=== PATIENT | male | born 1970 | race Caucasian/White ===

== ENCOUNTER 2022-12-20 03:19 | Day surgery (SDC) | payer OTHER, SELFPAY ==
[2022-12-06 14:01] VITALS: BMI 29.3
--- NOTE | 2022-12-17 13:52 | PM.HPGS ---
History of Present Illness History of Present Illness Consent: Risks, benefits, and alternatives have been discussed and questions answered. Patient agrees to proceed with procedure. Chief complaint: neoplasm screening Narrative: Nilo Leal is a 52 year old male referred for colon cancer screening. Review of Systems Review of Systems: All systems reviewed & are unremarkable except as noted in HPI and below PMFSH Past Medical History Medical History Arthralgia of right shoulder region Bilateral carpal tunnel syndrome BMI 31.0-31.9,adult BMI 32.0-32.9,adult BMI 33.0-33.9,adult BMI 34.0-34.9,adult Chewing tobacco nicotine dependence Chronic left shoulder pain resolved after shoulder surgery with Dr. Ontiveros Chronic pain of both shoulders Chronic pain of right knee Colon cancer screening COVID-19 (05/27/20) Elevated liver enzymes Liver enzymes normal with GGT 68, AST 25, ALT 29 on 03/19/2022. Encounter for prostate cancer screening PSA 0.92 on 03/19/2022. Encounter for wellness examination in adult Essential (primary) hypertension Fatigue Male erectile dysfunction, unspecified secondary to HCTZ and resolved with discontinuation Mixed hyperlipidemia Total cholesterol 213, HDL 71, triglycerides 106, LDL 121 on 03/19/2022. Obesity (BMI 30.0-34.9) Family History Family History Other Bilateral carpal tunnel syndrome History of arthroplasty of right shoulder Social History Social History Smoking packs per day: 0 Smoking cigarettes per day: 0.0 Years smoked: 0 Smoking pack-years: 0.00 Smoking status: Never smoker Tobacco type: smokeless tobacco Smokeless tobacco user: chewing tobacco Second hand tobacco smoke exposure: No Alcohol intake: current Drinks per week: 12 Alcohol use details: few every day of beer Substance use: never Substance use type: does not use Lack of Food: Never True Current Housing: I Have Housing Concerned About Future Housing: No Difficulty Paying Gas/Electric Bills: No Difficulty Paying for Meds: No Currently Unemployed: No Education: Trade/Vocational Certificate Difficulty w/ Childcare or Family Care: No Living arrangements: with family Occupation/Education: occupation 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 Gender identity (if verbalized by the patient): Male Sexual Orientation (if Verbalized by the Patient): Straight or Heterosexual Spiritual care concerns: No Agree to blood products: Yes Meds Home Medications and Allergies Home Medications Medication Instructions Recorded Confirmed Type amlodipine 5 mg tablet 5 mg PO DAILY #30 tabs 09/29/22 12/20/22 Rx irbesartan 300 mg tablet 300 mg PO DAILY #30 tabs 09/29/22 12/20/22 Rx Allergies Allergy/AdvReac Type Severity Reaction Status Date / Time No Known Allergies Allergy Verified 12/20/22 06:15 Exam Const: General: alert Orientation/consciousness: patient oriented x3 Resp: Auscultation: clear to auscultation bilaterally Cardio: Rhythm: regular rhythm GI: GI Palp: Yes Soft to palpation and No Tenderness to palpation present (GI) Neuro: General: patient oriented x3 Assessment and Plan Assessment and plan (1) Colon cancer screening: Code(s): Z12.11 - Encounter for screening for malignant neoplasm of colon Status: Acute Assessment and Plan: Colonoscopy with possible biopsy or polypectomy or cautery or injection of substances.
[2022-12-20 06:17] VITALS: BP 151/82; PULSE 86; RESP 16; TEMP 36.1; O2SAT 100; BMI 30.2
[2022-12-20] MEDS: LACTATED RINGERS 1,000 ML 150 ML IV CONT (06:24)
--- NOTE | 2022-12-20 07:19 | WPDANESEPPF ---
Anes - Initial Pre Proc Eval Procedure: Operation Date: 12/20/22 07:30 Proposed Procedures p Screening Colonoscopy - Epifanio Roberson MD Date/Time: 12/20/22 07:19 Surgeon: Epifanio Roberson MD Pre Op Diagnosis: neoplasm screening Patient Data Age: 52 Gender: M Height: 1.8 m Weight: 98.2 kg Last Vital Signs Temp 96.9 F L 12/20/22 06:17 Pulse 86 12/20/22 06:17 Resp 16 12/20/22 06:17 BP 151/82 H 12/20/22 06:17 Pulse Ox 100 12/20/22 06:17 O2 Del Method Room Air 12/20/22 06:17 Allergies Allergy/AdvReac Type Severity Reaction Status Date / Time No Known Allergies Allergy Verified 12/20/22 06:15 Home Medications Medication Instructions Recorded Confirmed Type amlodipine 5 mg tablet 5 mg PO DAILY #30 tabs 09/29/22 12/20/22 Rx irbesartan 300 mg tablet 300 mg PO DAILY #30 tabs 09/29/22 12/20/22 Rx Patient hx anesthesia problems: none Family hx anesthesia problems: none Results Review: All pre-operative results and documents have been reviewed as part of the pre-operative evaluation. [facility] Past Medical History Medical History Arthralgia of right shoulder region Bilateral carpal tunnel syndrome BMI 31.0-31.9,adult BMI 32.0-32.9,adult BMI 33.0-33.9,adult BMI 34.0-34.9,adult Chewing tobacco nicotine dependence Chronic left shoulder pain resolved after shoulder surgery with Dr. Ontiveros Chronic pain of both shoulders Chronic pain of right knee Colon cancer screening COVID-19 (05/27/20) Elevated liver enzymes Liver enzymes normal with GGT 68, AST 25, ALT 29 on 03/19/2022. Encounter for prostate cancer screening PSA 0.92 on 03/19/2022. Encounter for wellness examination in adult Essential (primary) hypertension Fatigue Male erectile dysfunction, unspecified secondary to HCTZ and resolved with discontinuation Mixed hyperlipidemia Total cholesterol 213, HDL 71, triglycerides 106, LDL 121 on 03/19/2022. Obesity (BMI 30.0-34.9) Family History Family History Other Bilateral carpal tunnel syndrome History of arthroplasty of right shoulder Social History Social History Smoking packs per day: 0 Smoking cigarettes per day: 0.0 Years smoked: 0 Smoking pack-years: 0.00 Smoking status: Never smoker Tobacco type: smokeless tobacco Smokeless tobacco user: chewing tobacco Second hand tobacco smoke exposure: No Alcohol intake: current Drinks per week: 12 Alcohol use details: few every day of beer Substance use: never Substance use type: does not use Lack of Food: Never True Current Housing: I Have Housing Concerned About Future Housing: No Difficulty Paying Gas/Electric Bills: No Difficulty Paying for Meds: No Currently Unemployed: No Education: Trade/Vocational Certificate Difficulty w/ Childcare or Family Care: No Living arrangements: with family Occupation/Education: occupation 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 Gender identity (if verbalized by the patient): Male Sexual Orientation (if Verbalized by the Patient): Straight or Heterosexual Spiritual care concerns: No Agree to blood products: Yes Anes - Eval Final PreProcedure Day of Procedure 12/20/22 07:19 Patient weight: obese Heart: regular rate and rhythm Lungs: clear to auscultation Airway: Mallampati scale class II Neurological: alert and oriented Last oral intake: >/= 8 hours ASA classification: II Emergent: no Anesthetic plan: proceed Anesthesia type and monitoring: general GIVS and standard monitoring Results Review: All pre-operative results and documents have been reviewed as part of the pre-operative evaluation. Informed Consent: The patient's anesthetic plan and its attendant risks and benefits were discussed with the patient/family/POA. Questions were solicited
[2022-12-20 07:49] VITALS: BP 130/79; PULSE 70; RESP 22; O2SAT 97
[2022-12-20 07:59] VITALS: BP 111/75; PULSE 64; RESP 23; O2SAT 100
[2022-12-20 08:09] VITALS: BP 117/79; PULSE 62; RESP 18; O2SAT 100
== END 2022-12-20 08:11 | disposition home or self-care (01) ==
PROVIDERS: PCP Family Medicine; Visit Provider Internal Medicine Gastroenterology
PROC: 0DJD8ZZ Inspection of Lower Intestinal Tract, Via Natural or Artificial Opening Endoscopic (ICD-10-PCS; CPT 45378; principal; 2022-12-20 07:30)
DX: Z12.11 Encounter for screening for malignant neoplasm of colon (principal); D12.5 Benign neoplasm of sigmoid colon; I10 Essential (primary) hypertension; D12.3 Benign neoplasm of transverse colon; K57.30 Diverticulosis of large intestine without perforation or abscess without bleeding; E78.2 Mixed hyperlipidemia; E66.9 Obesity, unspecified; Z68.30 Body mass index [BMI] 30.0-30.9, adult
CPT/HCPCS: 45385; 88305; J2704; J7120

== ENCOUNTER 2023-03-21 07:46 | Outpatient (CLI) | payer OTHER, SELFPAY ==
--- NOTE | 2023-03-21 08:22 | ECG_ITS ---
Measurements Intervals [place] Rate: 77 P: 20 NV: 151 QRS: -6 QRSD: 109 T: 24 QT: 362 QTc: 412 Interpretive Statements SINUS RHYTHM BASELINE ARTIFACT MINIMAL VOLTAGE CRITERIA FOR LVH, CONSIDER NORMAL VARIANT BORDERLINE ECG NO PREVIOUS ECG AVAILABLE FOR COMPARISON Electronically Signed On 03-21-2023 16:58:26 CDT by Yohan Priest M.D.
[2023-03-21 08:49] LABS: Hematocrit 44.1 % (42.0-52.0); Hemoglobin 14.9 g/dL (14.0-18.0)
== END 2023-03-21 07:47 | disposition home or self-care (01) ==
LOC: ANHSURGERY 07:49
PROVIDERS: Anesthesiology; PCP Family Medicine; Visit Provider Surgery
DX: Z01.818 Encounter for other preprocedural examination (principal); I10 Essential (primary) hypertension; K63.5 Polyp of colon; R93.1 Abnormal findings on diagnostic imaging of heart and coronary circulation
CPT/HCPCS: 36415; 85014; 85018; 86850; 86900; 86901; 93005

== ENCOUNTER 2023-03-29 12:27 | Inpatient (IN) | payer OTHER, SELFPAY ==
--- NOTE | 2023-03-21 08:03 | PC.NURSE ---
Report to the Outpatient Waiting Room, entrance under the green pavilion located off [facility], at time __0600 on date __03/29/23 . Planned Procedure Time: _729 . Time changes happen often and if your time is changed the preop area will call you the afternoon before. - You and your visitor will be asked to self-screen and do not enter if you have any COVID symptoms. - A mask is optional within the hospital at this time. Patients may have clear liquids (water, carbonated beverages, clear teas, apple juice) until 3 hours prior to surgery with a maximum of 20 ounces. - No food from midnight until time of surgery - Infants may have breast milk until 4 hours before surgery, formula 6 hours prior to surgery. - Children will be allowed to drink immediately following surgery. If applicable, please bring a bottle or sippy cup to assist with drinking. Juice, water, soda, and popsicles are readily available. For infants on formula, please bring formula the day of surgery. Pacifiers are allowed. Take the following medications with a SIP of water the morning of surgery: ___AMLODIPINE DO NOT STOP ANY OF YOUR OTHER PRESCRIPTION MEDICATIONS PRIOR TO SURGERY ?EXCEPT THE FOLLOWING Medications to discontinue per physician ___NONE HIBICLENS SHOWER DAY BEFORE SURGERY AND MORNING OF SURGERY ENSURE BUNDLE PACK PER DR ACUNA BOWEL PREP PER DR ACUNA Please no make-up, nail new zealander, hairspray, perfume, deodorant, or body powder the day of surgery. No jewelry (including any body piercings) or valuables the day of surgery, leave them at home. Please take a shower or bath the night before, or the morning of, surgery with an antibacterial soap. Wear comfortable, loose fitting clothing. Children are encouraged to wear pajamas. - Jewelry must be removed prior to entering the operating room. Rings and piercings that are not removed may be cut off. - The hospital will not accept responsibility for valuables. - Please leave all valuables, including medications, at home the day of surgery. If you are going home after surgery, a licensed cement mixer driver must drive you home. - NO public transportation without another adult if you receive anesthesia. - We recommend that an adult stay with you for 24 hours following discharge. - We also recommend that you do not drive, make important decision, drink alcoholic beverages, or take any drugs that were not prescribed by your health care provider for at least 24 hours after your discharge time. For Pediatric surgeries, we recommend two adults accompany the child home. Follow any additional instructions given to you from your surgeon. If you or anyone in your household have experienced Covid symptoms in the past week, please notify your surgeon or the nurse liaison at the phone number below for possible testing. VERBAL AND WRITTEN instructions given to __PATIETN and asked if any additional questions and then verbalized understanding. Patient advised to call surgeon office or pre surgery nurse liaison [phone] if any additional questions.
[2023-03-21 08:22] VITALS: BP 149/91; PULSE 86; RESP 18; TEMP 36.8; O2SAT 99; BMI 31.9
[2023-03-29] VITALS (17 sets, daily range): BP systolic 92–156; BP diastolic 62–92; PULSE 62–89; RESP 12–189; TEMP 36–36.9; O2SAT 96–100
--- NOTE | ~2023-03-29 | CT_ITS ---
EXAMINATION: CT abdomen pelvis w con DATE: 03/29/2023 21:25 INDICATION: Acute anemia. TECHNIQUE: Computed tomography (CT) of the abdomen and pelvis was performed with 100 mL Omnipaque 350 intravenous contrast. Automated exposure control and iterative reconstruction technique were employe d. The dose-length product was 1079.86 mGy-cm. COMPARISON: None. FINDINGS: The visualized portions of the lung bases demonstrate mild atelectasis. A calcified left kevin ng nodule and calcified left hilar lymph nodes are consistent with old granulomatous disease. No pleu ral effusion. The heart size is normal. There are coronary artery calcifications. No pericardial effu papa. There is left-sided gynecomastia. The liver, gallbladder, spleen, pancreas, adrenal glands, and kidneys are normal. The prostate is mildly enlarged. There are bilateral inguinal hernias containing fat. There is gas in the peritoneum and body wall, consistent with recent surgery. There is an anast omosis in the sigmoid colon. There are no dilated loops of bowel. The appendix is normal. There is a large volume of hemoperitoneum. There are no pathologically enlarged lymph nodes. Body wall edema is noted. There is severe lower lumbar spondylosis. There is mild thoracic spondylosis. IMPRESSION: 1. Large volume of hemoperitoneum. Reviewed, dictated and finalized at location E.
[2023-03-29] MEDS: LACTATED RINGERS 1,000 ML 30 ML IV CONT ×2 (06:33→11:15)
[2023-03-29] MEDS: ACETAMINOPHEN 500 MG TABLET 1000 MG PO ×3 (06:34→23:39)
[2023-03-29] MEDS: KETOROLAC 15 MG/ML VIAL (*BKC) IV PUSH (06:36)
--- NOTE | 2023-03-29 07:13 | WPDANESEPPF ---
Anes - Initial Pre Proc Eval Procedure: Operation Date: 03/29/23 07:30 Proposed Procedures p Laparoscopic Sigmoid Colectomy, Davinci Assisted - Facundo Gutierrez DO Date/Time: 03/29/23 07:13 Surgeon: Facundo Gutierrez DO Pre Op Diagnosis: sigmoid polyp Patient Data Age: 52 Gender: M Height: 1.78 m Weight: 98.3 kg Last Vital Signs Temp 97.0 F L 03/29/23 06:03 Pulse 73 03/29/23 06:03 Resp 189 H 03/29/23 06:03 BP 156/86 H 03/29/23 06:03 Pulse Ox 100 03/29/23 06:03 O2 Del Method Room Air 03/29/23 06:03 Allergies Allergy/AdvReac Type Severity Reaction Status Date / Time No Known Allergies Allergy Verified 03/29/23 06:53 Home Medications Medication Instructions Recorded Confirmed Type amlodipine 5 mg tablet 5 mg PO DAILY #30 tabs 09/29/22 03/29/23 Rx irbesartan 300 mg tablet 300 mg PO DAILY #30 tabs 09/29/22 03/29/23 Rx Patient hx anesthesia problems: none Family hx anesthesia problems: none Results Review: All pre-operative results and documents have been reviewed as part of the pre-operative evaluation. [facility] Past Medical History Medical History Arthralgia of right shoulder region Bilateral carpal tunnel syndrome BMI 31.0-31.9,adult BMI 32.0-32.9,adult BMI 33.0-33.9,adult BMI 34.0-34.9,adult Chewing tobacco nicotine dependence Chronic left shoulder pain resolved after shoulder surgery with Dr. Ontiveros Chronic pain of both shoulders Chronic pain of right knee Colon cancer screening (12/20/22) 50 mm polypoid mass distal sigmoid colon he biopsied With pathology suggesting tubular adenoma with no high-grade dysplasia with 16 mm sessile polyp, tubular adenoma, in the proximal sigmoid colon removed. Recheck in 1 year COVID-19 (05/27/20) Elevated liver enzymes Liver enzymes normal with GGT 68, AST 25, ALT 29 on 03/19/2022. Encounter for prostate cancer screening PSA 0.92 on 03/19/2022. Encounter for wellness examination in adult Essential (primary) hypertension Fatigue Male erectile dysfunction, unspecified secondary to HCTZ and resolved with discontinuation Mixed hyperlipidemia Total cholesterol 213, HDL 71, triglycerides 106, LDL 121 on 03/19/2022. Obesity (BMI 30.0-34.9) Family History Family History Other Bilateral carpal tunnel syndrome History of arthroplasty of right shoulder Social History Social History Smoking packs per day: 0 Smoking cigarettes per day: 0.0 Years smoked: 0 Smoking pack-years: 0.00 Smoking status: Never smoker Tobacco type: smokeless tobacco Smokeless tobacco user: chewing tobacco Second hand tobacco smoke exposure: No Alcohol intake: current Drinks per week: 15 Alcohol use details: BEER Substance use: never Substance use type: does not use Lack of Food: Never True Current Housing: I Have Housing Concerned About Future Housing: No Difficulty Paying Gas/Electric Bills: No Difficulty Paying for Meds: No Currently Unemployed: No Education: Trade/Vocational Certificate Difficulty w/ Childcare or Family Care: No Living arrangements: with family Occupation/Education: occupation 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
--- NOTE | 2023-03-29 07:15 | PM.IMHP ---
H&P: HPI History of Present Illness Date/Time: 03/29/23 07:15 Chief Complaint: Sigmoid polyp Narrative: 52 yo man presents for sigmoid colectomy. He had a large polyp identified on routine screening colonoscopy. He reports no changes since last seen in office. Review of Systems Review of Systems: All systems reviewed & are unremarkable except as noted in HPI and below Constitutional: Constitutional: Denies chills, Denies fever(s), Denies headache(s) and Denies weight loss Eyes: Eyes: Denies change in vision ENT: Denies dizziness, Denies headache(s), Denies neck mass and Denies throat swelling Cardiovascular: Cardiovascular: Denies chest pain, Denies lightheadedness and Denies dyspnea Respiratory: Respiratory: Denies cough, Denies dyspnea and Denies wheezing Gastrointestinal: Gastrointestinal: Denies abdominal pain, Denies change in bowel habits, Denies nausea and Denies vomiting Genitourinary: Genitourinary: Denies hematuria and Denies dysuria Musculoskeletal: Musculoskeletal: Reports as per HPI Integumentary/Breasts: Skin/Breast: Reports as per HPI Neurologic: Denies dizziness and Denies headache(s) Allergic/Immunologic: Allergic/Immunologic: Denies throat swelling and Denies wheezing [facility] Past Medical History Medical History Arthralgia of right shoulder region Bilateral carpal tunnel syndrome BMI 31.0-31.9,adult BMI 32.0-32.9,adult BMI 33.0-33.9,adult BMI 34.0-34.9,adult Chewing tobacco nicotine dependence Chronic left shoulder pain resolved after shoulder surgery with Dr. Ontiveros Chronic pain of both shoulders Chronic pain of right knee Colon cancer screening (12/20/22) 50 mm polypoid mass distal sigmoid colon he biopsied With pathology suggesting tubular adenoma with no high-grade dysplasia with 16 mm sessile polyp, tubular adenoma, in the proximal sigmoid colon removed. Recheck in 1 year COVID-19 (05/27/20) Elevated liver enzymes Liver enzymes normal with GGT 68, AST 25, ALT 29 on 03/19/2022. Encounter for prostate cancer screening PSA 0.92 on 03/19/2022. Encounter for wellness examination in adult Essential (primary) hypertension Fatigue Male erectile dysfunction, unspecified secondary to HCTZ and resolved with discontinuation Mixed hyperlipidemia Total cholesterol 213, HDL 71, triglycerides 106, LDL 121 on 03/19/2022. Obesity (BMI 30.0-34.9) Family History Family History Other Bilateral carpal tunnel syndrome History of arthroplasty of right shoulder Social History Social History Smoking packs per day: 0 Smoking cigarettes per day: 0.0 Years smoked: 0 Smoking pack-years: 0.00 Smoking status: Never smoker Tobacco type: smokeless tobacco Smokeless tobacco user: chewing tobacco Second hand tobacco smoke exposure: No Alcohol intake: current Drinks per week: 15 Alcohol use details: BEER Substance use: never Substance use type: does not use Lack of Food: Never True Current Housing: I Have Housing Concerned About Future Housing: No Difficulty Paying Gas/Electric Bills: No Difficulty Paying for Meds: No Currently Unemployed: No Education: Trade/Vocational Certificate Difficulty w/ Childcare or Family Care: No Living arrangements: with family Occupation/Education: occupation 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
--- NOTE | 2023-03-29 07:16 | WPDHPUPDATE1 ---
History and Physical Update Update Date/Time: 03/29/23 07:16 History and Physical has been reviewed, including an updated exam of the patient. There are NO changes in the patient's condition. Risks, benefits, and alternatives have been discussed and questions answered. Patient agrees to proceed with procedure.
[2023-03-29] MEDS: ceFAZolin 2 GM/D5W 50 ML 2 GM/50 ML BAG IVPB (07:34)
[2023-03-29] MEDS: metroNIDAZOLE 500 MG/ISO 100ML 500 MG/100 ML BAG 100 MG IVPB (07:50)
[2023-03-29] MEDS: BUPIVACAINE/EPINEPHRINE 0.5% 50 ML VIAL INFILTRATE (08:45)
[2023-03-29] MEDS: INDOCYANINE GREEN 25 MG VIAL WITH DILUENT 7.5 MG IV PUSH (09:56)
--- NOTE | 2023-03-29 10:57 | W.PM.PROC2 ---
Procedure Note - Detailed Date of Procedure 03/29/23 Pre-op Diagnosis sigmoid polyp Post-op Diagnosis Same Procedure Performed Laparoscopic sigmoid colectomy with colorectal anastomosis, da Sven assisted Surgeon Facundo Gutierrez DO Anesthesia General and Local (0.5% bupivacaine with epinephrine) Indications This is a 52-year-old man who presented with findings of a large sigmoid polyp on colonoscopy on 12/20/2022. The area was tattooed and biopsies confirmed adenoma. This was his 1st colonoscopy. He denied any rectal bleeding or any other bowel habit changes. Discussions were made with the patient about treatment options and decision was made to proceed with robotic assisted laparoscopic sigmoid colectomy. Findings Laparoscopic sigmoid colectomy was performed. The tattooed region was identified on the distal sigmoid colon. The rectum distal to this appeared healthy and viable. The patient had adequate length of the colon proximally to bring down into pelvis for anastomosis. A high ligation of the inferior mesenteric artery was performed. Indocyanine green was also used to confirm adequate perfusion to the proximal and distal transection points as well as after the anastomosis. The sigmoid colon was resected and an end to side colorectal anastomosis was performed using a 28 mm EEA stapler. The anastomotic rings appeared intact and leak test showed no evidence of anastomotic leak. The sigmoid colon was sent to the lab for pathology. Description of Procedure Procedure as well as risks, benefits, and alternatives were discussed with the patient. Written consent was obtained and placed in chart prior to procedure. Patient was brought back to surgical suite. He was placed supine on operating table. Time-out was done to confirm patient and procedure. He was then intubated by the anesthesia department. He was then repositioned into a modified lithotomy position. His rectal area was prepped and draped in sterile fashion using Betadine prep and her abdomen was prepped and draped in sterile fashion using chlorhexidine prep. 4 cm transverse incision was made in the suprapubic region using a 15 blade scalpel. Electrocautery was used for hemostasis and for dissection down to the linea alba. The anterior rectus sheath was then cleared for about 2 cm on each side of the linea alba using electrocautery. The anterior rectus sheath was then incised using electrocautery transversely. The fascia was carefully lifted off of the rectus muscle using electrocautery. The rectus muscle was then split in the midline and the peritoneum was entered using electrocautery. A small Mike wound protector was then placed and this was clamped closed using a straight bowel clamp. A 8 mm incision was made in the right upper quadrant and a 5 mm Optiview trocar was advanced through the abdominal layers under direct visualization. Once inside the abdominal cavity, carbon dioxide insufflation was used to create a pneumoperitoneum. Camera was inserted and her abdomen was inspected laparoscopically. No immediate abnormalities were identified. The patient was placed in steep Trendelenburg position. A 12 mm incision was made in the right lower quadrant about 2 cm medial to the ASIS, and a 12 mm trocar was inserted under direct visualization. Three more 8 mm incisions were placed and 8 mm ports were placed under direct visualization on an oblique angle going up towards the left upper quadrant. Exparel was infiltrated laterally the abdominal brewster on each side to perform a transversus abdominis block bilaterally. A careful thorough examination of the abdominal cavity was performed. The omentum was reflected cephalad over the stomach. The cecum and small bowel were reflected out of the pelvis. The robotic arms were then brought up to the patient's bedside in secured to the ports. The robotic camera and instruments were then inserted and then I moved over to the robotic console and took
--- NOTE | 2023-03-29 12:49 | ADMGEN ---
This patient, Nilo Leal, was admitted to [facility] Surg Room 328-01. Patient/family oriented to hospital policies and general routines including ID bracelet, bed and alarms, visiting hours, pain management, procedures, bathroom and other care routines, personal items, smoking policy, room service/diet, and visiting hours. Information on how to activate the Rapid Response Team has been discussed. Patient/Family are encouraged to report perceived risks to care and to ask questions if they do not understand what they are told or what they should do. Report from Carmen in pacu.
[2023-03-29] MEDS: ONDANSETRON INJ 4 MG/2 ML VIAL IV PUSH (12:57)
[2023-03-29] MEDS: LACTATED RINGERS 1,000 ML 100 ML IV CONT (12:58)
[2023-03-29 15:53] LABS: Glucose Point of Care 193 mg/dl (65-105)
[2023-03-29 19:04] LABS: Hematocrit 31.1 % (42.0-52.0)
[2023-03-29 21:11] LABS: Estimated CRCL calculation 55 ml/min; Estimated Glomerular Filt Rate 43
[2023-03-29 22:08] LABS: Hematocrit 27.2 % (42.0-52.0); Hemoglobin 8.8 g/dL (14.0-18.0)
[2023-03-29 22:18] LABS: INR 1.2; Prothrombin Time 15.5 Seconds (11.1-14.7)
[2023-03-29 22:19] LABS: Partial Thromboplastin Time 23.6 SECONDS (22.3-36.8)
[2023-03-29] MEDS: TRANEXAMIC ACID 1,000MG/ISO100 1,000 MG/100 ML BAG 200 MG IVPB (22:36)
[2023-03-30] VITALS (8 sets, daily range): BP systolic 98–122; BP diastolic 59–73; PULSE 68–94; RESP 16–18; TEMP 36.1–37.4; O2SAT 90–97
[2023-03-30] MEDS: LACTATED RINGERS 1,000 ML 100 ML IV CONT ×2 (00:48→12:21)
[2023-03-30 02:23] LABS: Hematocrit 25.8 % (42.0-52.0); Hemoglobin 8.4 g/dL (14.0-18.0)
[2023-03-30] MEDS: oxyCODONE HCL (*CRX) 5 MG TAB IR PO (03:54)
[2023-03-30] MEDS: ACETAMINOPHEN 500 MG TABLET 1000 MG PO ×4 (05:32→23:32)
[2023-03-30 06:01] LABS: Basophils Percent Auto 0.3 % (0.2-1.2); Eosinophils Percent Auto 0.1 % (0-4.4); Hematocrit 24.5 % (42.0-52.0); Hemoglobin 8.1 g/dL (14.0-18.0); Immature Granulocyte Absolute 0.09 K/mm3 (0.00-0.031); Immature Granulocyte Percent A 0.6 % (0-0.5); Lymphocytes Absolute Auto 2.17 K/mm3 (0.9-3.2); Lymphocytes Percent Auto 14.3 % (18.3-44.2); Mean Corpuscular HGB Conc 33.1 g/dl (32-36); Mean Corpuscular Hemoglobin 32.3 pg (26-34); Mean Corpuscular Volume 97.6 fl (80-100); Mean Platelet Volume 9.4 fl (7.4-10.4); Monocytes Absolute Auto 1.8 K/mm3 (0.1-0.6); Monocytes Percent Auto 11.7 % (2.6-8.5); Neutrophils Absolute Auto 11.1 K/mm3 (1.3-6.7); Platelet Count Result 207 k/mm3 (150-375); Red Blood Count 2.51 M/mm3 (4.6-6.20); Red Cell Distribution Width 12.1 % (11.5-14.5); White Blood Count 15.1 K/mm3 (4.5-10.0)
[2023-03-30 06:16] LABS: Anion Gap 7 mmol/L (8-16); Blood Urea Nitrogen 16 mg/dL (9-20); Calcium 8.2 mg/dL (8.4-10.2); Carbon Dioxide 22 mmol/L (22-30); Chloride 100 mmol/L (98-107); Estimated CRCL calculation 47 ml/min; Estimated Glomerular Filt Rate 36; Glucose 117 mg/dL (65-110); Potassium 4.1 mmol/L (3.4-5.0); Sodium 129 mmol/L (137-145)
--- NOTE | 2023-03-30 08:39 | PM.PNGS ---
Progress Note: A&P Assessment and Plan (1) Polyp, sigmoid colon: Qualifiers: Colon polyp type: adenomatous Qualified Code(s): D12.5 - Benign neoplasm of sigmoid colon Code(s): K63.5 - Polyp of colon Status: Acute Assessment and Plan: POD 1 robotic-assisted laparoscopic sigmoid colectomy. He had an episode of bleeding from the right lateral trochar incision and a drop in his hemoglobin last evening. CT scan abdomen/pelvis showed hemoperitoneum, but no active extravasation. His hgb has leveled out this morning and he is feeling better. His abdomen remains soft with a localized area of swelling and ecchymosis at the right lateral trochar incision. Continue full liquids for now. I asked nursing to get the patient up to the side of the bed and if he is stable, then he can start ambulating with assistance. (2) JESSICA (acute kidney injury): Code(s): N17.9 - Acute kidney failure, unspecified Status: Acute Assessment and Plan: Creatinine up to 2.0 this morning with decreased urine output. Likely secondary to some bleeding/volume depletion, and he also had IV contrast with his CT overnight. Will give an IV fluid bolus now. Trend labs. Continue to hold antihypertensives and monitor BP. (3) Anemia: Code(s): D64.9 - Anemia, unspecified Status: Acute Assessment and Plan: Likely related to some bleeding following surgery. He had some bleeding and swelling at the right lateral trochar incision, and manual pressure was applied. Hgb dropped to 10 and then down to 8.[address] ordered and showed hemoperitoneum but no active extravasation. He received a dose of TXA last night. No obvious signs of continued active bleeding this morning. Repeat H/H later today, trend labs. Plan I have discussed the patient's case and plan of care with Dr. Gutierrez. Subjective Subjective Date/Time Seen: 03/30/23 08:39 Post Op day: 1 (Laparoscopic sigmoid colectomy with colorectal anastomosis, da Sven assisted) Patient reports: no new complaints, tolerating liquids well, voiding w/o difficulty, flatus, no bowel movement and afebrile Interval history: Yesterday afternoon following surgery, he developed some bleeding and swelling at his right lateral trochar incision. Pressure was applied for 10 minutes and he had a new dressing applied as well. He felt like he was going to pass out and was diaphoretic. H/H was ordered and hgb 10.0 last night. H/H was checked Q6H since and dropped again down to 8.8. He had a CT abdomen and pelvis w/ contrast that showed large volume hemoperitoneum, but no active extravasation. He was given one dose of TXA. His hgb then remained between 8.1-8.4 overnight and into this morning. He is not tachycardic, but his blood pressure is slightly low. His antihypertensives and Lovenox (prophylactic) are on hold. He reports soreness at his incisions, but no abdominal pain. The right lateral trochar incision has not had anymore bleeding and the same dressing is in place from yesterday afternoon. He reports feeling much better this morning. He denies any dizziness, light-headedness, shortness of breath, or any other complaints at this time. He does want to get out of bed to urinate and walk to the bathroom. He denies nausea or vomiting. He is tolerating full liquids this morning. He feels like he needs to have a bowel movement and is passing flatus. His creatinine is up to 2.0 this morning and sodium down to 129. He has only urinated once this morning since surgery and reports the urine was dark. Nursing did a post-void bladder scan that was negative. Review of Systems Constitutional: Constitutional: Reports as per HPI, Reports no additional constitutional complaints, Denies chills, Denies fever(s), Denies headache(s) and Denies weakness Cardiovascular: Cardiovascular: Reports as per HPI, Reports no additional cardiovascular complaints, Denies chest pain, Denies rapid heart rate and Denies leg
[2023-03-30] MEDS: SODIUM CHLORIDE 0.9% IV 1,000 ML 999 ML IV CONT (09:00)
[2023-03-30 12:07] LABS: Hematocrit 22.1 % (42.0-52.0); Hemoglobin 7.2 g/dL (14.0-18.0)
--- NOTE | 2023-03-30 13:04 | WPDANESPN ---
Anes - Prog Note Post-Op Date/Time: 03/30/23 13:04 Cardiovascular status: normal Respiratory status: normal Airway patency: baseline Mental status: baseline Post-Op hydration status: normal Vital Signs: Last Vital Signs Temp 37.1 C 03/30/23 11:56 Pulse 68 03/30/23 11:56 Resp 16 03/30/23 11:56 BP 104/59 L 03/30/23 11:56 Pulse Ox 97 03/30/23 11:56 O2 Del Method Room Air 03/29/23 20:00 O2 Flow Rate 8 03/29/23 11:30 Pain Score (VAS): 2 I/O: Intake & Output 03/29/23 03/30/23 03/30/23 23:59 07:59 15:59 Intake Total 4463 433 4322 Output Total 300 Balance 1322 -100 2240 Laboratory Tests 03/30/23 11:48 03/30/23 05:38 03/29/23 03/29/23 03/29/23 15:47 18:30 20:54 WBC RBC Hgb 10.0 L D Hct 31.1 L MCV MCH MCHC RDW Plt Count MPV Immature Gran % (Auto) Neut % (Auto) Lymph % (Auto) [place] % (Auto) Eos % (Auto) Baso % (Auto) Lymph # (Auto) [place] # (Auto) Eos # (Auto) Baso # (Auto) Abs Immat Gran (auto) Absolute Neuts (auto) Absolute Nucleated RBC Nucleated RBC % PT INR APTT Sodium Potassium Chloride Carbon Dioxide Anion Gap BUN Creatinine 1.70 H Estim Creat Clear Calc 55 Estimated GFR 43 L Glucose POC Capillary Glucose 193 H Calcium 03/29/23 03/30/23 03/30/23 21:59 02:18 05:38 WBC 15.1 H RBC 2.51 L Hgb 8.8 L 8.4 L 8.1 L Hct 27.2 L 25.8 L 24.5 L MCV 97.6 MCH 32.3 MCHC 33.1 RDW 12.1 Plt Count 207 MPV 9.4 Immature Gran % (Auto) 0.6 H Neut % (Auto) 73.0 Lymph % (Auto) 14.3 L [place] % (Auto) 11.7 H Eos % (Auto) 0.1 Baso % (Auto) 0.3 Lymph # (Auto) 2.17 [place] # (Auto) 1.8 H Eos # (Auto) 0.0 Baso # (Auto) 0.0 Abs Immat Gran (auto) 0.09 H Absolute Neuts (auto) 11.1 H Absolute Nucleated RBC 0.0 Nucleated RBC % 0.0 PT 15.5 H INR 1.2 APTT 23.6 Sodium 129 L Potassium 4.1 Chloride 100 Carbon Dioxide 22 Anion Gap 7 L BUN 16 Creatinine 2.00 H Estim Creat Clear Calc 47 Estimated GFR 36 L Glucose 117 H POC Capillary Glucose Calcium 8.2 L 03/30/23 11:48 WBC RBC Hgb 7.2 L Hct 22.1 L MCV MCH MCHC RDW Plt Count MPV Immature Gran % (Auto) Neut % (Auto) Lymph % (Auto) [place] % (Auto) Eos % (Auto) Baso % (Auto) Lymph # (Auto) [place] # (Auto) Eos # (Auto) Baso # (Auto) Abs Immat Gran (auto) Absolute Neuts (auto) Absolute Nucleated RBC Nucleated RBC % PT INR APTT Sodium Potassium Chloride Carbon Dioxide Anion Gap BUN Creatinine Estim Creat Clear Calc Estimated GFR Glucose POC Capillary Glucose Calcium Post-procedural complaints: none Patient Feedback: Patient satisfied with anesthetic care.
[2023-03-31] VITALS (10 sets, daily range): BP systolic 104–127; BP diastolic 55–69; PULSE 78–96; RESP 16–20; TEMP 36.4–37.6; O2SAT 91–97
[2023-03-31] MEDS: ACETAMINOPHEN 500 MG TABLET 1000 MG PO ×3 (05:24→17:30)
[2023-03-31 06:22] LABS: Mean Corpuscular Hemoglobin 31.8 pg (26-34); Mean Corpuscular Volume 99.5 fl (80-100); Mean Platelet Volume 9.3 fl (7.4-10.4); Platelet Count Result 182 k/mm3 (150-375); Red Blood Count 1.98 M/mm3 (4.6-6.20); Red Cell Distribution Width 12.5 % (11.5-14.5); White Blood Count 10.5 K/mm3 (4.5-10.0)
[2023-03-31 06:27] LABS: Hematocrit 19.7 % (42.0-52.0); Hemoglobin 6.3 g/dL (14.0-18.0)
[2023-03-31 06:36] LABS: Anion Gap 2 mmol/L (8-16); Blood Urea Nitrogen 11 mg/dL (9-20); Calcium 8.2 mg/dL (8.4-10.2); Carbon Dioxide 27 mmol/L (22-30); Chloride 104 mmol/L (98-107); Estimated CRCL calculation 94 ml/min; Estimated Glomerular Filt Rate > 60; Glucose 104 mg/dL (65-110); Potassium 3.6 mmol/L (3.4-5.0); Sodium 133 mmol/L (137-145)
[2023-03-31] MEDS: SODIUM CHLORIDE 0.9% IV 250 ML 30 ML IV CONT (09:44)
--- NOTE | 2023-03-31 13:04 | PM.PNGS ---
Progress Note: A&P Assessment and Plan (1) Tubulovillous adenoma of colon: Code(s): D12.6 - Benign neoplasm of colon, unspecified Status: Acute Assessment and Plan: Tolerating soft diet. Discussed pathology with patient. Will keep in hospital until stable after transfusion. (2) Anemia: Qualifiers: Anemia type: other cause Other causes of anemia: acute posthemorrhagic Qualified Code(s): D62 - Acute posthemorrhagic anemia Code(s): D64.9 - Anemia, unspecified Status: Acute Assessment and Plan: Receiving 2 units PRBC today. BP stable and no signs of continued active bleeding. Drop in hemoglobin likely dilutional from IV bolus and maintenance fluids yesterday. Will repeat CBC tomorrow. Home tomorrow if stable. (3) JESSICA (acute kidney injury): Code(s): N17.9 - Acute kidney failure, unspecified Status: Acute Assessment and Plan: Likely related to acute blood loss. Cr normalized today. Making good urine. Subjective Subjective Date/Time Seen: 03/31/23 13:04 Interval history: Tolerating diet. Bowels moving. Minimal abdominal tenderness. Ambulating without difficulty. No more bleeding from right lateral port site. No lightheadedness. Exam GI: Inspection: non-distended and incision (ecchymosis at right lateral incision, no open wounds or bleeding.) GI Palp: Yes Soft to palpation, Yes Tenderness to palpation present (GI) (mild incisional), No Guarding due to palpation present (GI) and No Rebound tenderness present Percussion: Yes normal to percussion Auscultation: normal bowel sounds Objective Data Vital Signs Vital Signs: Vital Signs - 24 hr 03/30/23 16:01 03/30/23 20:00 03/30/23 20:00 Temperature 36.3 C L 36.2 C L Pulse Rate 81 82 94 Respiratory Rate 16 17 18 Blood Pressure 122/73 102/64 Pulse Oximetry 93 93 90 Oxygen Delivery Room Air 03/31/23 01:00 03/31/23 05:00 03/31/23 09:59 Temperature 36.4 C L 36.8 C 37.3 C Pulse Rate 96 92 88 Respiratory Rate 20 16 16 Blood Pressure 108/59 L 113/60 108/60 Pulse Oximetry 91 91 95 Oxygen Delivery 03/31/23 10:14 03/31/23 11:14 03/31/23 08:35 Temperature 37.6 C 37.3 C Pulse Rate 91 94 Respiratory Rate 16 16 Blood Pressure 114/61 119/63 Pulse Oximetry 95 97 Oxygen Delivery Room Air Intake/Output Intake/Output: Intake & Output 03/28/23 03/29/23 03/30/23 03/31/23 23:59 23:59 23:59 23:59 Intake Total 1572 3038 420 Output Total 1200 Balance 1572 1838 420 Meds/Results Medications: Active Medications Generic Name Dose Route Start Last Admin Trade Name Freq PRN Reason Stop Dose Admin Acetaminophen 1,000 mg 03/29/23 12:27 03/31/23 11:21 Acetaminophen 500 Mg Tablet PO 1,000 mg Q6HR LAZARO Administration Sodium Chloride 250 mls @ 30 mls/hr 03/31/23 06:39 03/31/23 09:44 Normal Saline Iv IV CONT 03/31/23 14:58 30 mls/hr .Q8H20M STA Administration Morphine Sulfate 2 mg 03/29/23 12:27 Morphine Sulfate (*Crx) 2 Mg/Ml Inj IV PUSH Q2H PRN Pain Rated 4-6 Morphine Sulfate 4 mg 03/29/23 12:27 Morphine Sulfate (*Crx) 4 Mg/Ml Inj IV PUSH Q2H PRN Pain Rated 7-10 Ondansetron HCl 4 mg 03/29/23 12:27 03/29/23 12:57 Ondansetron Inj 4 Mg/2 Ml Vial IV PUSH 4 mg Q4H PRN Administration Nausea And Vomiting Oxycodone HCl 2.5 mg 03/29/23 12:27 Oxycodone Hcl (*Crx) 2.5 Mg Tab Ir PO Q4H PRN Pain Rated 4-6 Oxycodone HCl 5 mg 03/29/23 12:27 03/30/23 03:54 Oxycodone Hcl (*Crx) 5 Mg Tab Ir PO 5 mg Q4H PRN Administration Pain Rated 7-10 Radiology Results: ITS Impressions Abdomen/Pelvis CT 03/29/23 21:25 IMPRESSION: 1. Large volume of hemoperitoneum. ADDENDUM: 03/29/232135 I called this result to September. Labs Labs: Laboratory Results - last 24 hr 03/31/23 03/31/23 06:06 07:37 WBC 10.5 H RBC 1.98 L Hgb 6.3 L* Hct 19.7 L* MCV 99.
[2023-03-31 15:22] LABS: Hemoglobin 7.3 g/dL (14.0-18.0)
[2023-03-31] MEDS: oxyCODONE HCL (*CRX) 5 MG TAB IR PO (22:05)
[2023-04-01] MEDS: ACETAMINOPHEN 500 MG TABLET 1000 MG PO ×3 (00:15→12:04)
[2023-04-01 06:00] VITALS: BP 128/67; PULSE 81; RESP 18; TEMP 37.2; O2SAT 94
[2023-04-01 06:49] LABS: Hematocrit 21.7 % (42.0-52.0); Mean Corpuscular HGB Conc 32.3 g/dl (32-36); Mean Corpuscular Hemoglobin 32.1 pg (26-34); Mean Corpuscular Volume 99.5 fl (80-100); Mean Platelet Volume 9.3 fl (7.4-10.4); Platelet Count Result 182 k/mm3 (150-375); Red Blood Count 2.18 M/mm3 (4.6-6.20); Red Cell Distribution Width 13.2 % (11.5-14.5); White Blood Count 9.3 K/mm3 (4.5-10.0)
--- NOTE | 2023-04-01 08:47 | PM.DS ---
DS: Admitting Diagnosis Discharge Date 04/01/2023 Admitting Diagnosis Sigmoid adenomatous polyp DS: Discharge Diagnosis Discharge Diagnosis (1) Tubulovillous adenoma of colon: Onset Date: ~03/2023 Code(s): D12.6 - Benign neoplasm of colon, unspecified Status: Acute (2) Anemia: Qualifiers: Anemia type: other cause Other causes of anemia: acute posthemorrhagic Qualified Code(s): D62 - Acute posthemorrhagic anemia Code(s): D64.9 - Anemia, unspecified Status: Acute DS: Summary Hospital Course Reason for hospitalization: Sigmoid polyp Hospital Course: This is a 52-year-old man who presented for sigmoid colectomy for a large sigmoid polyp. He had undergone screening colonoscopy on 12/20/[address] Roberson and was found to have a large sigmoid polyp that was biopsied and tattooed. Biopsy showed evidence of adenoma without dysplasia. He underwent robotic assisted laparoscopic sigmoid colectomy on 03/29/2023. Surgery was uncomplicated and he was admitted to the surgical floor postoperatively. About 6 hours after his surgery, the floor nurse noted that he was hypotensive and lightheaded. He was also having near syncopal episodes. His abdominal exam showed swelling at the right lateral port site and there was some bleeding coming through the incision. Pressure was held for about 10 minutes and patient's blood pressure and heart rate improved. His mental status also improved and he was no longer lightheaded or near syncopal. Labs were checked and his hemoglobin had dropped from 15 preoperatively down to 10. A stat CT abdomen and pelvis was obtained that evening which showed evidence of a large hemoperitoneum but no active extravasation. Patient had remained hemodynamically stable at that point. Serial H&H labs were ordered and patient is hemoglobin did slowly drop a little further but did not appear to be showing any rapid changes. On 03/30/2023, his blood pressure was still borderline low and his creatinine had elevated therefore he was given a bolus of IV normal saline. This did appear to help with his blood pressure and feelings of lightheadedness. He was otherwise doing well postoperatively and was tolerating clear liquids. His diet was advanced to full liquids and then to a low-fiber diet as tolerated. His bowels began moving on postop day 1. On postop day 2 his hemoglobin had dropped to 6.3, therefore he was given 2 units of packed red blood cell. His creatinine had improved back to normal. He was getting up ambulating without any lightheadedness or any other difficulties. He was showing no other signs of active blood loss. His hemoglobin remained stable after the transfusion. On postop day 3 he was feeling well and tolerating a regular diet. He was then discharged on postop day 3. Status at Discharge Functional status at discharge: independent ambulation Overall status at discharge: patient is progressing back to baseline Time Spent with Patient Time attestation: Total time spent providing and/or coordinating discharge services: Time spent: Less than 30 minutes Exam Const: General: comfortable and no acute distress Orientation/consciousness: patient oriented x3 Resp: Effort & Inspection: normal respiratory effort Auscultation: clear to auscultation bilaterally Cardio: Rate: regular rate Rhythm: regular rhythm Heart sounds: S1 normal heart sound present and S2 normal heart sound present GI: Inspection: normal to inspection GI Palp: Yes Soft to palpation and Yes Tenderness to palpation present (GI) (right lateral incision) Auscultation: normal bowel sounds Other: Ecchymosis around right lateral incision extending about 10cm circumferentially. No open wounds or bleeding. DS: Data Data Completed and Pending Completed studies during hospitalization: Pending at discharge 03/29/23 10:24 Final Diagnosis Large intestine, sigmoid colon, sigmoid colectomy: - Tubulovill
== END 2023-04-01 12:10 | disposition home or self-care (01) | DRG 330 ==
LOC: ANH3MEDSUR 12:31
PROVIDERS: Nurse Practitioner Family; Admitting Provider Surgery; PCP Family Medicine; Visit Provider Surgery
PROC: 0DBN4ZZ Excision of Sigmoid Colon, Percutaneous Endoscopic Approach (ICD-10-PCS; principal; 2023-03-29 07:30)
DX: D12.5 Benign neoplasm of sigmoid colon (principal); D62 Acute posthemorrhagic anemia; N17.8 Other acute kidney failure; F17.220 Nicotine dependence, chewing tobacco, uncomplicated; E66.9 Obesity, unspecified; E78.2 Mixed hyperlipidemia; I10 Essential (primary) hypertension; Z96.611 Presence of right artificial shoulder joint; Z68.32 Body mass index [BMI] 32.0-32.9, adult; Z86.16 Personal history of COVID-19
CPT/HCPCS: 36415; 36430; 74177; 80048; 82565; 82948; 85014; 85018; 85025; 85027; 85610; 85730; 86850; 86900; 86901; 86923; 88309; A9270; C1729; J0690; J1100; J1170; J1836; J1885; J2250; J2405; J2704; J3010; J7030; J7050; J7120; P9016; Q9967

== ENCOUNTER 2023-04-04 07:28 | Outpatient (CLI) | payer OTHER, SELFPAY ==
[2023-04-04 07:56] LABS: Hematocrit 27.5 % (42.0-52.0); Hemoglobin 8.9 g/dL (14.0-18.0); Mean Corpuscular HGB Conc 32.4 g/dl (32-36); Mean Corpuscular Hemoglobin 32.4 pg (26-34); Mean Platelet Volume 8.6 fl (7.4-10.4); Platelet Count Result 355 k/mm3 (150-375); Red Blood Count 2.75 M/mm3 (4.6-6.20); Red Cell Distribution Width 13.3 % (11.5-14.5); White Blood Count 11.8 K/mm3 (4.5-10.0)
== END 2023-04-04 07:29 | disposition home or self-care (01) ==
LOC: ANHLAB 07:29
PROVIDERS: PCP Family Medicine; Visit Provider Surgery
DX: D64.9 Anemia, unspecified (principal)
CPT/HCPCS: 36415; 85027

== ENCOUNTER → 2023-08-24 16:29 | Outpatient (CLI) | payer OTHER, SELFPAY ==
--- NOTE | ~2023-08-24 | XR_ITS ---
Left Shoulder Technique: AP and axillary views were obtained. Clinical History: Pain Findings: No fracture or dislocation is seen. Osseous alignment is anatomic. Small inferomedial humer al head osteophyte present, with mild narrowing of the glenohumeral joint. There is mild AC joint deg enerative change.. Soft tissues are unremarkable. Impression: Degenerative changes, as above. Reviewed, dictated and finalized at location M. Impression: Degenerative changes, as above.
== END ==
PROVIDERS: PCP Family Medicine; Visit Provider Family Medicine
DX: M25.512 Pain in left shoulder (principal)
CPT/HCPCS: 73030

== ENCOUNTER → 2024-10-11 10:06 | Outpatient (CLI) | payer OTHER, SELFPAY ==
--- OUTSIDE RECORDS SUMMARY | 2024-10-11 10:23 | XMS_ITS | Clinical Summary ---
Author Organization [facility] Address [address] [place] [id number] Care Team Providers Care Climbing Guide Name Role Phone Unavailable Primary Care Provider Unavailabl e Social History Tobacco Use Types Packs/Day Years Used Date Smoking Tobacco: Never Assessed Sex and Gender Information Value Date Recorded Sex Assigned at Not on file Legal Sex Male 7:21 PM CDT Gender Identity Not on file Sexual Orientation Not on file Plan of Treatment Health Maintenance Due Date Last Done Comments Colorectal Cancer Screening Colonoscopy (10 Years) 1972 Annual Physical 08/26/1975 Hepatitis C 1990 DTaP, Tdap and Td Vaccines ( 1 - Tdap) 08/26/1991 Hepatitis B Vaccines (1 of 3 - 19+ 3-dose series) 08/26/1991 Pneumococcal Vaccine: 50+ Ye ars (1 of 1 - PCV) 2022 Zoster Vaccines (1 of 2) 2022 COVID-19 Vaccine ( - 2023-2 5 season) 2024 Meningococcal B Vaccine Aged Out No l onger eligible based on patient's age to complete this topic Meningococcal Vaccine Aged Out No angelica lore eligible based on patient's age to complete this topic RSV Immunizations Under 20 Months Aged Out No longer eligible based on patient's age to complete this topic
== END ==
LOC: EXPTRAD 10:07
PROVIDERS: PCP Nurse Practitioner Family; Visit Provider Nurse Practitioner Family
DX: M25.562 Pain in left knee (principal)
CPT/HCPCS: 73564

== ENCOUNTER 2024-10-15 00:35 | Day surgery (SDC) | payer OTHER, SELFPAY ==
[2024-10-02 13:38] VITALS: BMI 31.6
--- OUTSIDE RECORDS SUMMARY | 2024-10-15 00:37 | XMS_ITS | Clinical Summary ---
Author Organization [facility] Address [address] [place] [id number] Care Team Providers Care Patient Escort Name Role Phone Unavailable Primary Care Provider [...]
[2024-10-15 06:16] VITALS: BP 158/87; PULSE 70; RESP 18; TEMP 36.1; O2SAT 97; BMI 31.6
[2024-10-15] MEDS: LACTATED RINGERS 1,000 ML 150 ML IV CONT (06:24)
--- NOTE | 2024-10-15 07:05 | P.PNAN_ITS ---
Anes - Initial Pre Proc Eval Procedure: Operation Date: 10/15/24 07:30 Proposed Procedures p Colonoscopy - Franky Landa MD Date/Time: 10/15/24 07:05 Surgeon: Franky Landa MD Pre Op Diagnosis: benign neoplasm Patient Data Age: 54 Gender: M Height: 1.78 m Weight: 100.1 kg Last Vital Signs Temp 36.1 C L 10/15/24 06:16 Pulse 70 10/15/24 06:16 Resp 18 10/15/24 06:16 BP 158/87 H 10/15/24 06:16 Pulse Ox 97 10/15/24 06:16 O2 Del Method Room Air 10/15/24 06:16 Allergies Allergy/AdvReac Type Severity Reaction Status Date / Time No Known Allergies Allergy Verified 10/15/24 06:15 Home Medications ?Medication ?Instructions ?Recorded ?Confirmed ?Type amlodipine 5 mg tablet 5 mg PO DAILY #30 tabs 10/10/24 10/15/24 Rx irbesartan 300 mg tablet 300 mg PO DAILY #30 tabs 10/10/24 10/15/24 Rx Patient hx anesthesia problems: none Family hx anesthesia problems: none Results Review: All pre-operative results and documents have been reviewed as part of the pre- operative evaluation. [facility] Past Medical History Medical History Left knee pain Anemia (03/29/23) Hemoglobin 7.0 on 04/01/2023. Hemoglobin 8.9 on 04/04/2023. Hemoglobin 12.6 on 04/19/2023. Hemoglobin 15.2, iron 180 with 46% saturation and ferritin 212 with vitamin B12 545 and folic acid 10.9 on 06/25/2024. BMI 33.0-33.9,adult Left anterior shoulder pain (08/22/23) X-ray left shoulder 08/24/2023 with degenerative changes. Encounter for surgical aftercare following surgery on the digestive system JESSICA (acute kidney injury) BUN 10, creatinine 0.76 04/19/2023. Colon cancer screening (12/20/22) 50 mm polypoid mass distal sigmoid colon he biopsied With pathology suggesting tubular adenoma with no high-grade dysplasia with 16 mm sessile polyp, tubular adenoma, in the proximal sigmoid colon removed. Recheck in 1 year BMI 31.0-31.9,adult Chronic pain of both shoulders Chronic pain of right knee BMI 32.0-32.9,adult Obesity (BMI 30.0-34.9) Fatigue Male erectile dysfunction, unspecified secondary to HCTZ and resolved with discontinuation COVID-19 (05/27/20) Mixed hyperlipidemia Total cholesterol 213, HDL 71, triglycerides 106, LDL 121 on 03/19/2022. Total cholesterol 192, triglycerides 243, HDL 65, LDL 114 with ratio 3.0 on 04/19/2023. cholesterol 221, triglycerides 69, HDL 74, LDL 131 with ratio 3.0 on 06/25/2024. Elevated liver enzymes Liver enzymes normal with GGT 68, AST 25, ALT 29 on 03/19/2022. Chewing tobacco nicotine dependence 1 can every 2 days. Decreased 1 can per week. Encounter for wellness examination in adult Encounter for prostate cancer screening PSA 0.92 on 03/19/2022. PSA 1.84 on 04/19/2023. PSA 0.79 on 06/25/2024. BMI 34.0-34.9,adult Chronic left shoulder pain resolved after shoulder surgery with Dr. Weston Mast (primary) hypertension Arthralgia of right shoulder region Bilateral carpal tunnel syndrome Surgical History Surgical History History of colectomy Laparoscopic sigmoid colectomy with colorectal anastomosis, da Sven assisted on 03/29/23 [facility] Family History Family History Other Bilateral carpal tunnel syndrome History of arthroplasty of right shoulder Social History Social History Smoking packs per day: 0 Smoking cigarettes per day: 0.0 Years smoked: 0 Smoking pack-years: 0.00 Smoking status: Never smoker Tobacco type: smokeless tobacco Smokeless tobacco user: chewing tobacco Second hand tobacco smoke exposure: No Alcohol intake: current Drinks per week: 12 Alcohol use details: BEER Substance use: never Substance use type: does not use Lack of Transportation: No Lack of Food: Never True Current Housing: I Have Housing Concerned About Future Housing: No Difficulty Paying Gas/Electric Bills: No Difficulty Paying for Meds: No Currently Unemployed: No Education: Don't Know Difficulty w/ Childcare or Family Care: No Living arrangements: with family Occupation/Education: occupation 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 Gender identity (if verbalized by the patient): Male Sexual Orientation (if Verbalized by the Patient): Straight or Heterosexual Spiritual care concerns: No Agree to blood products: Yes Anes - Eval Final PreProcedure Day of Procedure 10/15/24 07:05 Patient weight: obese Heart: regular rate and rhythm Lungs: clear to auscultation Airway: Mallampati scale class II Neurological: alert and oriented Last oral intake: >/= 8 hours ASA classification: III Emergent: no Anesthetic plan: proceed Anesthesia type and monitoring: general GIVS and standard monitoring Results Review: All pre-operative results and documents have been reviewed as part of the pre- operative evaluation. Informed Consent: The patient's anesthetic plan and its attendant risks and benefits were discussed with the patient/family/POA. Questions were solicited and answers provided to the satisfaction of the patient/family/POA.
--- NOTE | 2024-10-15 07:19 | PM.HPGS ---
History of Present Illness History of Present Illness Consent: Risks, benefits, and alternatives have been discussed and questions answered. Patient agrees to proceed with procedure. Chief complaint: benign neoplasm Narrative: Nilo Leal is a 54 year old male with large TVA polyp in sigmoid in 2022 removed by surgery Review of Systems Review of Systems: All systems reviewed & are unremarkable except as noted in HPI and below PMFSH Past Medical History Medical History Left knee pain Anemia (03/29/23) Hemoglobin 7.0 on 04/01/2023. Hemoglobin 8.9 on 04/04/2023. Hemoglobin 12.6 on 04/19/2023. Hemoglobin 15.2, iron 180 with 46% saturation and ferritin 212 with vitamin B12 545 and folic acid 10.9 on 06/25/2024. BMI 33.0-33.9,adult Left anterior shoulder pain (08/22/23) X-ray left shoulder 08/24/2023 with degenerative changes. Encounter for surgical aftercare following surgery on the digestive system JESSICA (acute kidney injury) BUN 10, creatinine 0.76 04/19/2023. Colon cancer screening (12/20/22) 50 mm polypoid mass distal sigmoid colon he biopsied With pathology suggesting tubular adenoma with no high-grade dysplasia with 16 mm sessile polyp, tubular adenoma, in the proximal sigmoid colon removed. Recheck in 1 year BMI 31.0-31.9,adult Chronic pain of both shoulders Chronic pain of right knee BMI 32.0-32.9,adult Obesity (BMI 30.0-34.9) Fatigue Male erectile dysfunction, unspecified secondary to HCTZ and resolved with discontinuation COVID-19 (05/27/20) Mixed hyperlipidemia Total cholesterol 213, HDL 71, triglycerides 106, LDL 121 on 03/19/2022. Total cholesterol 192, triglycerides 243, HDL 65, LDL 114 with ratio 3.0 on 04/19/2023. cholesterol 221, triglycerides 69, HDL 74, LDL 131 with ratio 3.0 on 06/25/2024. Elevated liver enzymes Liver enzymes normal with GGT 68, AST 25, ALT 29 on 03/19/2022. Chewing tobacco nicotine dependence 1 can every 2 days. Decreased 1 can per week. Encounter for wellness examination in adult Encounter for prostate cancer screening PSA 0.92 on 03/19/2022. PSA 1.84 on 04/19/2023. PSA 0.79 on 06/25/2024. BMI 34.0-34.9,adult Chronic left shoulder pain resolved after shoulder surgery with Dr. Weston Mast (primary) hypertension Arthralgia of right shoulder region Bilateral carpal tunnel syndrome Surgical History Surgical History History of colectomy Laparoscopic sigmoid colectomy with colorectal anastomosis, da Sven assisted on 03/29/23 [facility] Family History Family History Other Bilateral carpal tunnel syndrome History of arthroplasty of right shoulder Social History Social History Smoking packs per day: 0 Smoking cigarettes per day: 0.0 Years smoked: 0 Smoking pack-years: 0.00 Smoking status: Never smoker Tobacco type: smokeless tobacco Smokeless tobacco user: chewing tobacco Second hand tobacco smoke exposure: No Alcohol intake: current Drinks per week: 12 Alcohol use details: BEER Substance use: never Substance use type: does not use Lack of Transportation: No Lack of Food: Never True Current Housing: I Have Housing Concerned About Future Housing: No Difficulty Paying Gas/Electric Bills: No Difficulty Paying for Meds: No Currently Unemployed: No Education: Don't Know Difficulty w/ Childcare or Family Care: No Living arrangements: with family Occupation/Education: occupation 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 Gender identity (if verbalized by the patient): Male Sexual Orientation (if Verbalized by the Patient): Straight or Heterosexual Spiritual care concerns: No Agree to blood products: Yes Meds Home Medications and Allergies Home Medications ?Medication ?Instructions ?Recorded ?Confirmed ?Type amlodipine 5 mg tablet 5 mg PO DAILY #30 tabs 10/10/24 10/15/24 Rx irbesartan 300 mg tablet 300 mg PO DAILY #30 tabs 10/10/24 10/15/24 Rx Allergies Allergy/AdvReac Type Severity Reaction Status Date / Time No Known Allergies Allergy Verified 10/15/24 06:15 Vital Signs Vital Signs - 24 hr 10/15/24 06:16 Temperature 97 F L Pulse Rate 70 Respiratory Rate 18 Blood Pressure 158/87 H Pulse Oximetry 97 Oxygen Delivery Room Air Exam Const: General: comfortable and no acute distress HENMT: Face/Nose/Sinus: Normal nares present Eyes: General: appearance normal, both eyes and all related structures Neck: Neck: no JVD Resp: Auscultation: clear to auscultation bilaterally Cardio: Rate: regular rate Rhythm: regular rhythm GI: Inspection: non-distended GI Palp: Yes Soft to palpation Skin: General skin exam: normal color Neuro: General: gait normal Speech: normal speech Extrem: General: normal to inspection Psych: Mental Status: mental status grossly normal Assessment and Plan Assessment and plan (1) Tubulovillous adenoma of colon: Onset Date: ~03/2023 Code(s): D12.6 - Benign neoplasm of colon, unspecified Status: Acute Assessment and Plan: colonoscopy
[2024-10-15 07:36] VITALS: BP 112/69; PULSE 71; RESP 24; O2SAT 99
[2024-10-15 07:46] VITALS: BP 114/73; PULSE 63; RESP 18; O2SAT 99
[2024-10-15 07:56] VITALS: BP 122/73; PULSE 56; RESP 19; O2SAT 99
== END 2024-10-15 08:02 | disposition home or self-care (01) ==
PROVIDERS: PCP Family Medicine; Referring Provider Family Medicine; Visit Provider Internal Medicine Gastroenterology
PROC: 0DJD8ZZ Inspection of Lower Intestinal Tract, Via Natural or Artificial Opening Endoscopic (ICD-10-PCS; CPT 45378; principal; 2024-10-15 07:30)
DX: Z09 Encounter for follow-up examination after completed treatment for conditions other than malignant neoplasm (principal); D12.3 Benign neoplasm of transverse colon; D12.4 Benign neoplasm of descending colon; K57.30 Diverticulosis of large intestine without perforation or abscess without bleeding; K64.8 Other hemorrhoids; Z98.0 Intestinal bypass and anastomosis status; Z90.49 Acquired absence of other specified parts of digestive tract; F17.220 Nicotine dependence, chewing tobacco, uncomplicated; E66.9 Obesity, unspecified; Z68.31 Body mass index [BMI] 31.0-31.9, adult
CPT/HCPCS: 45385; 88305; J2003; J2704; J7120